=== PATIENT | female | born 1990 | race African-American/Black ===

== ENCOUNTER → 2017-04-09 | Outpatient (CLI) | payer OTHER ==
--- NOTE | 2017-04-09 19:27 | REP ---
MRI study abdomen without and with IV gadolinium: History: Benign neoplasm of the liver. Comparison MRI study 07/13/2016 showed two solid liver mass lesions most compatible with hepatic adenomas. Comparison is also made with the MR images from 05/20/2015. Technique: Axial and coronal T1 and T2-weighted scans are obtained with sequences including true FISP, spin echo, turbo spin-echo, in and out of phase, and sequential post gadolinium enhanced dynamic 2-D gradient echo fat sat T1-weighted scans. Gadolinium enhancement dose: 20 mL of intravenous ProHance is administered. MRI findings: There is been no change in either of the two hypervascular liver mass lesions in the interval since the 05/12/2015 prior study. The larger lesion measures 4.6 cm in greatest diameter on axial scans today and the smaller lesion measures 1.5 cm. They are unchanged in signal intensity being slightly hyperintense on T2 and slightly hypointense on T1 showing heterogeneous enhancement and some washout on dynamic study post-contrast. No other liver mass lesion is seen. No pancreatic, splenic, renal or adrenal lesion is observed. No evidence of ascites. Impression: Stable hepatic masses unchanged since 05/20/2015. Signed by Ron Sandoval MD 04/09/2017 07:38 P
== END ==
LOC: M RAD 15:59
PROVIDERS: ATTEND Internal Medicine Gastroenterology
DX: D13.4 Benign neoplasm of liver (principal)
CPT/HCPCS: 74183; A9576